=== PATIENT | female | born 1975 | race Asian ===

== ENCOUNTER 2017-10-15 21:57 | Emergency (ER) | payer MEDICAID ==
[~2017-10-15] VITALS: Ht 157.5 cm; Wt 59.1 kg
[~2017-10-15 21:57] MED LIST: NOCURR
[2017-10-15] MEDS ORDERED: TraMADol HCL 50 MG TABLET PO ONE (23:45)
[2017-10-16 01:00] VITALS: BP 110/68
== END 2017-10-16 01:24 | disposition home or self-care (01) ==
LOC: EMS 21:58
DX: S00.532A Contusion of oral cavity, initial encounter (principal); S00.33XA Contusion of nose, initial encounter; S20.20XA Contusion of thorax, unspecified, initial encounter; F41.9 Anxiety disorder, unspecified; Y04.8XXA Assault by other bodily force, initial encounter; Y93.89 Activity, other specified; Y92.89 Other specified places as the place of occurrence of the external cause; Y99.8 Other external cause status; Z98.51 Tubal ligation status
CPT/HCPCS: 71101; 99284